=== PATIENT | female | born 1985 | race Caucasian/White ===

== ENCOUNTER 2022-06-19 12:01 | Emergency (ER) | payer OTHER, SELFPAY ==
--- NOTE | 2022-06-19 | ECG_ITS ---
Test Reason : DIZZINESS Blood Pressure : / mmHG Vent. Rate : 076 BPM Atrial Rate : 076 BPM P-R Int : 152 ms QRS Dur : 076 ms QT Int : 404 ms P-R-T Axes : 042 028 016 degrees QTc Int : 454 ms Normal sinus rhythm Normal ECG No previous ECGs available Referred By: Generic ED Physician Electronically Signed By:Carlos Hercules
--- NOTE | ~2022-06-19 | CT_ITS ---
EXAMINATION: CT HEAD WITHOUT CONTRAST CLINICAL INFORMATION: Hypertension and headache COMPARISON: None TECHNIQUE: Contiguous axial imaging was performed from the skull base to vertex without intravenous administration of contrast. This CT examination was performed using dose optimization techniques as appropriate, variously including the following: *Automated exposure control *Adjustment of mA and/or kV according to patient size (this includes techniques or standardized protocols for targeted exams where dose is matched to indication/reason for exam; i.e. extremities or head) *Use of iterative reconstruction technique DLP: 657 mGy-cm FINDINGS: There is no evidence of acute intracranial hemorrhage or territorial infarction. No abnormal mass effect or midline shift is seen. Myers to white matter differentiation is well preserved. No extra-axial fluid collections are identified. The ventricles are normal in size. There is no abnormal attenuation within the brain parenchyma. The osseous structures and soft tissues are normal. The mastoid air cells and visualized portions of the paranasal sinuses are well aerated. CT/CT head/brain wo con IMPRESSION: No acute intracranial pathology.
[2022-06-19 12:26] VITALS: BP 152/106; PULSE 75; RESP 16; TEMP 36.7; O2SAT 100; BMI 37.9
[2022-06-19 15:51] LABS: MANUAL DIFF FLAG NO
[2022-06-19 15:54] LABS: Basophils Absolute Auto 0.1 X10*3/uL (0.0-0.2); Basophils Percent Auto 0.6 % (0-2); Eosinophils Absolute Auto 0.2 X10*3/uL (0.0-0.4); Eosinophils Percent Auto 1.7 % (0-4); Hematocrit 40.4 % (37.0-47.0); Hemoglobin 13.2 g/dl (12.0-16.0); Imm Gran Abs Auto 0.07 X10*3/uL (0.00-0.03); Imm Gran Pct Auto 0.5 % (0.0-0.4); Lymphocytes Absolute Auto 3.1 X10*3/uL (1.2-4.9); Lymphocytes Percent Auto 23.7 % (20-40); Mean Corpuscular HGB Conc 32.7 g/dl (31.0-35.0); Mean Corpuscular Hemoglobin 27.7 pg (27.0-33.0); Mean Corpuscular Volume 84.9 fL (80.0-98.0); Mean Platelet Volume 10.6 fL (9.4-12.3); Monocytes Absolute Auto 0.6 X10*3/uL (0.1-1.2); Monocytes Percent Auto 4.9 % (2-11); Neutrophils Absolute Auto 9.1 x10*3/uL (2.0-8.3); Neutrophils Percent Auto 68.6 % (45-73); Platelet Count 328 X10*3/uL (160-400); Red Blood Count 4.76 X10*6/uL (4.20-5.50); Red Cell Distribution Width 13.2 % (11.0-16.0); White Blood Count 13.2 X10*3/uL (4.8-10.8)
[2022-06-19 16:11] LABS: Anion Gap 14 (12-20); Blood Urea Nitrogen 9 mg/dL (9-16); Calcium 9.2 mg/dL (8.4-10.2); Carbon Dioxide 23 mmol/L (22-29); Chloride 105 mmol/L (96-108); Creatinine Clr Calc Pharmacy 117.7; Estimated Glomerular Filt Rate > 60; Glucose Random 86 mg/dL (60-115); Potassium 4.4 mmol/L (3.3-5.1); Sodium 138 mmol/L (135-145)
[2022-06-19 16:16] LABS: Troponin-I High Sensitivity < 3.5 ng/L (<3.5-17.0)
--- NOTE | 2022-06-19 20:17 | ED_ITS ---
HPI - General Adult General Chief complaint: Dizziness Stated complaint: high bp , lightheaded, seeing flashes Time Seen by Provider: 06/19/22 20:16 Source: patient Mode of arrival: ambulatory Limitations: no limitations History of Present Illness HPI narrative: Patient with no history of hypertension been having headache on the right side with blurred vision and dizziness Seeing the spots for last 2 days went to urgent care center blood pressure was elevated 200 /100 Related Data Previous Rx's Medication Instructions Recorded timolol maleate 0.5 % eye drops 1 drp ophthalmic (eye) BID #5 mL 06/19/22 (Timoptic) Allergies Allergy/AdvReac Type Severity Reaction Status Date / Time No Known Allergies Allergy Verified 06/19/22 15:19 Review of Systems Review of Systems: Yes all other systems are reviewed and are negative [facility] Past Medical History Medical History Asthma No known health problems Social History Social History Alcohol intake: current Alcohol intake frequency: a few times a month Alcohol type: wine and hard liquor Patient Tobacco Use Status: Never used Tobacco Use of substances other than those prescribed or required for medical reasons: No Substance Use Type: Marijuana Substance Use Frequency: Daily Last Used Substance: Days (ago) Advance Directives: No Advance Directives Information Provided: No Patient : No Physical Exam ED Vital Signs: Vital Signs - 24 hr 06/19/22 12:26 06/19/22 22:00 Temperature 98.1 F Pulse Rate 75 70 Respiratory Rate 16 20 Blood Pressure 152/106 H 155/78 H Pulse Oximetry 100 100 Oxygen Delivery Method Room Air Room Air BMI result Body Mass Index 37.9 Appearance: Alert. Oriented X3. No acute distress. Eyes: No pallor or icterus fundus exam no papilledema normal vasculature, IOP right eye 23 left eye 19 visual cross normal PERRLA ENT: Pharynx normal. Oral Mucosa moist no temporal artery tenderness Neck: Normal inspection. Neck supple. CVS: Normal heart rate and rhythm. Pulses normal. Respiratory: No respiratory distress. Equal air entry bilateral, no wheezing/rales/rhonchi Abdomen: Soft and nontender. Bowel sounds are present, no mass palpable, no CVA tenderness Skin: Skin warm and dry. Normal skin color. Normal skin turgor. Extremities: No lower extremity edema. No calf tenderness Neuro: Oriented X 3. No motor deficit. No sensory deficit.No cerebellar signs , cranial nerves II-XII intact Medical Decision Making MDM Narrative Medical decision making narrative: Patient with right eye pain for last 2 days with light sensitivity. Patient I 0 P was elevated in the right eye to 23 fundus normal likely patient has glaucoma causing the pain in the right eye and likely the blood pressure elevated from that at this time patient's blood pressure stable. Will discharge home on timolol eye drops advised to follow with cad draftsman and PCP regarding blood pressure management Lab Data Lab results reviewed: Yes I reviewed the patient's lab results. Result diagrams: 06/19/22 15:24 06/19/22 15:24 Labs: Lab Results 06/19/22 06/19/22 06/19/22 Range/Units 15:24 15:24 15:24 WBC 13.2 H (4.8-10.8) X10*3/uL RBC 4.76 (4.20-5.50) X10*6/uL Hgb 13.2 (12.0-16.0) g/dl Hct 40.4 (37.0-47.0) % MCV 84.9 (80.0-98.0) fL MCH 27.7 (27.0-33.0) pg MCHC 32.7 (31.0-35.0) g/dl RDW 13.2 (11.0-16.0) % Plt Count 328 (160-400) X10*3/uL MPV 10.6 (9.4-12.3) fL Immature Gran % (Auto) 0.5 H (0.0-0.4) % Neut % (Auto) 68.6 (45-73) % Lymph % (Auto) 23.7 (20-40) % [place] % (Auto) 4.9 (2-11) % Eos % (Auto) 1.7 (0-4) % Baso % (Auto) 0.6 (0-2) % Lymph # (Auto) 3.1 (1.2-4.9) X10*3/uL [place] # (Auto) 0.6 (0.1-1.2) X10*3/uL Eos # (Auto) 0.2 (0.0-0.4) X10*3/uL Baso # (Auto) 0.1 (0.0-0.2) X10*3/uL Abs Immat Gran (auto) 0.07 H (0.00-0.03) X10*3/uL Absolute Neuts (auto) 9.1 H (2.0-8.3) x10*3/uL Absolute Nucleated RBC 0.000 (0.0-0.012) X10*3/uL Nucleated RBC % (auto) 0.0 (0.0-0.2) /100WBC Sodium 138 (135-145) mmol/L Potassium 4.4 (3.3-5.1) mmol/L Chloride 105 (96-108) mmol/L Carbon Dioxide 23 (22-29) mmol/L Anion Gap 14 (12-20) BUN 9 (9-16) mg/dL Creatinine 0.76 (0.5-1.4) mg/dL Estim Creat Clear Calc 117.7 Estimated GFR > 60 Random Glucose 86 (60-115) mg/dL Calcium 9.2 (8.4-10.2) mg/dL Troponin I High Sens < 3.5 (<3.5-17.0) ng/L Discharge Plan Discharge Clinical Impression: Glaucoma, Hypertension Patient Disposition: Home, Self-Care Instructions: Glaucoma (ED), Hypertension (ED) Additional Instructions: Decrease salt intake Eyedrops as advised Follow-up with cad draftsman for glaucoma Follow your PCP for blood pressure possible you have mild hypertension , normal blood pressure should be less than 135/85 Prescriptions: New timolol maleate [Timoptic] 0.5 % drops 1 drp ophthalmic (eye) BID Qty: 5 0RF Referrals: Austin Corrigan [Physician] - 1 week
[2022-06-19 22:00] VITALS: BP 155/78; PULSE 70; RESP 20; O2SAT 100
--- NOTE | 2022-06-19 22:32 | PC.NURSE ---
pt a&ox3, tearful, vss - hypertensive, pending CT results.
--- NOTE | 2022-06-19 22:42 | PC.NURSE ---
pt requesting food/drink, brought turkey sandwich w pudding and heidi hunter.
[2022-06-19] MEDS: Tetracaine HCl/PF 0.5% Oph Sol 4 ML DROPS 3 DROP EYE-RIGHT (22:59)
--- NOTE | 2022-06-19 22:59 | PC.NURSE ---
pt medicated w eye drops by provider, provider at bedside checking ocular pressure.
--- NOTE | 2022-06-19 23:35 | PC.NURSE ---
pt waiting for eye drops prior to discharge - unavailable in ED pyxis, nursing field supervisor notified of location in [facility] to get medication.
--- NOTE | 2022-06-20 00:05 | PC.NURSE ---
pt declining medication, doesn't want to drive home after eye drops - explained she could pick the medication up in the morning from the pharmacy, but we would be unable to dispense the medication. pt frustrated that she has been waiting a long time, asked to speak to provider. Dr Bhatia attempted to speak to pt, pt requested supervisor self service store. RN [employer] Salesperson notified. eye drops administered by RN supervisor self service store.
[2022-06-20] MEDS: timoloL maleate 0.5 % Oph Sol 5 ML DRBTL 1 DROP EYE-RIGHT (00:19)
== END 2022-06-20 00:26 | disposition home or self-care (01) ==
PROVIDERS: Emergency Provider Internal Medicine; PCP Physician Assistant
DX: H40.9 Unspecified glaucoma (principal); I10 Essential (primary) hypertension; R42 Dizziness and giddiness; F12.90 Cannabis use, unspecified, uncomplicated
CPT/HCPCS: 36415; 70450; 80048; 84484; 85025; 93005; 99284